=== PATIENT | female | born 1935 | race Caucasian/White ===

== ENCOUNTER 2024-11-25 10:01 | Observation (INO) | payer MEDICARE, OTHER ==
[~2024-11-25] VITALS: Ht 170.2 cm; Wt 56.0 kg
[2024-11-25] MEDS ORDERED: ATEN25TA PO (10:19)
[2024-11-25] MEDS ORDERED: ISOVUE-370 76% 100 ML VIAL As Ordered ONE (11:13)
[2024-11-25 11:15] LABS: BASO # 0.1 10^3/uL (0.0-0.2); BASO % 1.0 % (0.0-1.0); EOS # 0.1 10^3/uL (0.0-0.5); EOS % 1.7 % (0.0-3.0); LYMPH # 0.6 10^3/uL (1.5-5.0); LYMPH % 11.4 % (24.0-44.0); MONO # 0.5 10^3/uL (0.0-0.8); MONO % 8.6 % (2.0-8.0); NEUTROPHILS # 4.1 10^3/uL (1.5-8.5); NEUTROPHILS % 77.1 % (36.0-66.0); PLATELET COUNT, AUTOMATED 261 10^3/uL (150-450)
[2024-11-25 11:38] LABS: CK-MB VALUE MASS < 1.0 NG/ML (<3.6)
[2024-11-25] MEDS ORDERED: LISI5TAB11 PO (11:38)
[2024-11-25] MEDS ORDERED: ECOT81TA5 PO (11:39)
[2024-11-25] MEDS ORDERED: PANT40TA29 PO (11:39)
[2024-11-25 11:41] LABS: ALT/SGPT 16 U/L (7.0-40); AST/SGOT 22 U/L (<34); CALCIUM LEVEL 8.7 MG/DL (8.3-10.6); CARBON DIOXIDE LEVEL 32 MMOL/L (20-31); CHLORIDE LEVEL 102 MMOL/L (98-107); CPK CREATINE PHOSPHOKINASE 38 U/L (34-145); CREATININE FOR GFR 0.80 MG/DL (0.55-1.30); GLOMERULAR FILTRATION RATE 71.3 (>32); MAGNESIUM LEVEL 2.3 MG/DL (1.8-2.4); POTASSIUM SERUM 4.2 MMOL/L (3.5-5.1); SODIUM LEVEL 142 MMOL/L (136-145)
[2024-11-25 11:42] LABS: FREE T4 1.24 NG/DL (0.89-1.76)
[2024-11-25] MEDS: NS (Normal Saline) 0.9% 1,000 ML IV ONE (12:01)
[2024-11-25] MEDS ORDERED: MEMA10TA PO (12:34)
[2024-11-25] MEDS ORDERED: MECL-136 PO (12:34)
[2024-11-25] MEDS ORDERED: OCUVTAB4 PO (12:34)
[2024-11-25] MEDS ORDERED: VITA100093 PO (12:34)
[2024-11-25 12:35] LABS: CK-MB VALUE MASS < 1.0 NG/ML (<3.6); CPK CREATINE PHOSPHOKINASE 70 U/L (34-145)
[2024-11-25] MEDS ORDERED: B-12100010 PO (13:50)
[2024-11-25] MEDS ORDERED: SUPETAB56 PO (13:50)
[2024-11-25] MEDS ORDERED: LISI10TA22 PO (13:50)
[2024-11-25] MEDS ORDERED: XALA0.007 OU (13:50)
[2024-11-25] MEDS ORDERED: HOME MED LIST COMPLETE! XX SCH (13:55)
[2024-11-25 15:15] VITALS: BP_SYST 170; BP_SYST 196; BP_SYST 200; BP_DIAS 100; BP_DIAS 94; BP_DIAS 96
[2024-11-25 15:19] VITALS: TEMP 97.3; O2SAT 97
[2024-11-25 16:47] VITALS: BP 180/90; TEMP 97.8; O2SAT 97
[2024-11-25] MEDS: amLODIPine 5 MG TAB PO ONE (17:52)
[2024-11-25] MEDS ORDERED: PROHANCE 279.3MG/ML 15ML VIAL As Ordered ONE (18:41)
[2024-11-25 20:19] VITALS: BP 164/72; TEMP 98; O2SAT 94
[2024-11-25] MEDS: LATANOPROST 0.005% OPHTH SOLN 2.5 ML OU SCH (21:00)
[2024-11-25] MEDS: RAMELTEON 8 MG TAB PO ONE (21:46)
[2024-11-25] MEDS: ACETAMINOPHEN 325 MG TAB PO ONE (21:46)
[2024-11-26] VITALS: BP_SYST 101; BP_SYST 125; BP_SYST 99; BP_DIAS 57; BP_DIAS 59; BP_DIAS 60; TEMP 98.8; O2SAT 97
[2024-11-26 03:25] VITALS: BP 122/69; TEMP 98.2; O2SAT 96
[2024-11-26 07:34] VITALS: BP 154/80; TEMP 97.7; O2SAT 94
[2024-11-26 08:29] VITALS: BP 154/80
[2024-11-26] MEDS: ASPIRIN 81 MG ENTERIC TABLET PO SCH (08:29)
[2024-11-26] MEDS: PANTOPRAZOLE 40MG TAB PO SCH (08:29)
[2024-11-26] MEDS: MEMANTINE 5 MG TABLET PO SCH (08:29)
[2024-11-26] MEDS ORDERED: LISI2.5T9 PO (12:14)
[2024-11-26] MEDS ORDERED: MEMA10TA PO (12:14)
== END 2024-11-26 13:55 | disposition home or self-care (01) ==
LOC: M ED 10:01 → INTOOBSV 13:58 → M ED INP 13:58 → M PCU 15:02
PROVIDERS: ADMIT Internal Medicine Nephrology; ATTEND Internal Medicine Nephrology
DX: R55 Syncope and collapse (principal); E43 Unspecified severe protein-calorie malnutrition; K82.8 Other specified diseases of gallbladder; R91.8 Other nonspecific abnormal finding of lung field; I67.82 Cerebral ischemia; G31.1 Senile degeneration of brain, not elsewhere classified; R93.7 Abnormal findings on diagnostic imaging of other parts of musculoskeletal system; I10 Essential (primary) hypertension; I95.89 Other hypotension; F03.90 Unspecified dementia, unspecified severity, without behavioral disturbance, psychotic disturbance, mood disturbance, and anxiety; K59.00 Constipation, unspecified; R42 Dizziness and giddiness; K21.9 Gastro-esophageal reflux disease without esophagitis; Z88.5 Allergy status to narcotic agent; Z79.899 Other long term (current) drug therapy; Z79.82 Long term (current) use of aspirin
CPT/HCPCS: 70450; 70486; 70553; 71045; 71275; 72125; 74183; 80048; 80076; 82550; 82553; 83735; 84439; 84443; 84484; 85025; 93005; 93041; 93306; 94760; 97161; 99285; A9576; G0378; Q9967

== ENCOUNTER → 2024-12-31 | Outpatient (CLI) | payer MEDICARE ==
[~2024-12-31] MED LIST: ATEN25TA PO; B-12100010 PO; ECOT81TA5 PO; LISI10TA22 PO; LISI2.5T9 PO; LISI5TAB11 PO; MECL-136 PO; MEMA10TA PO; OCUVTAB4 PO; PANT40TA29 PO; SUPETAB56 PO; VITA100093 PO; XALA0.007 OU
== END ==
LOC: M PLARAD 09:36
PROVIDERS: ATTEND Family Medicine
DX: R93.5 Abnormal findings on diagnostic imaging of other abdominal regions, including retroperitoneum (principal)
CPT/HCPCS: 78815; A9552